=== PATIENT | female | born 1945 | race Caucasian/White ===

== ENCOUNTER 2024-02-04 07:38 | Outpatient (CLI) | payer MEDICARE, OTHER, SELFPAY ==
--- NOTE | 2024-02-04 09:20 | W.ANESCHARGE ---
Anesthesia Charges Start Date/Time Anesthesia Start Date: 02/04/24 Anesthesia Start Time: 08:44 Stop Date/Time Anesthesia Stop Date: 02/04/24 Anesthesia Stop Time: 09:18 Summary Extremes of Age - Over 70 or under 1: [employer]
== END 2024-02-04 07:39 | disposition home or self-care (01) ==
LOC: OP CLINIC 07:41
PROVIDERS: PCP Family Medicine; Visit Provider Internal Medicine Gastroenterology
DX: Z86.010 Personal history of colon polyps (principal); K92.1 Melena; Q43.8 Other specified congenital malformations of intestine; Z98.890 Other specified postprocedural states
CPT/HCPCS: 00811; 45380; 45388; 88305; 99100; J2704